=== PATIENT | female | born 1960 | race Caucasian/White ===

== ENCOUNTER 2016-09-06 10:12 | Day surgery (SDC) | payer MEDICAID ==
[~2016-09-06 10:12] MED LIST: Lactated Ringers 1,000 ML IV SCH
[2016-09-06] MEDS ORDERED: Lactated Ringers 1,000 ML IV SCH (10:45)
[2016-09-06] MEDS ORDERED: fentaNYL 100 MCG/2 ML SDV ONE (11:06)
[2016-09-06] MEDS ORDERED: Midazolam 1 MG/ML 2 ML SDV ONE (11:06)
[2016-09-06] MEDS ORDERED: Propofol 200 MG/20 ML SDV ONE (11:06)
[2016-09-06 13:27] VITALS: BP 102/71
--- NOTE | 2016-09-07 07:42 | OR ---
DATE OF PROCEDURE: 09/06/2016 PREOPERATIVE DIAGNOSIS: Colon cancer screening. POSTOPERATIVE DIAGNOSIS: Small colon polyp 15 cm from the anal verge. PROCEDURE: Colonoscopy to the cecum with biopsy resection of small colon polyp 15 cm from the anal verge. ANESTHESIA: IV anesthesia with monitored anesthesia care. INDICATION: This 56-year-old white female is referred for a colonoscopy for colon cancer screening. She has never had a colonoscopic exam. I counseled her for the procedure including risks and alternatives, and she gave her informed consent to proceed. DESCRIPTION OF PROCEDURE: The patient was placed in the left lateral decubitus position. IV anesthesia was administered by the Anesthesia Service. Time-out was held. A rectal exam was performed, which was unremarkable. The flexible video Olympus colonoscope was introduced through her anus, up her rectum, and out her colon all the way to the cecum. Once the cecum was reached, the scope was slowly withdrawn examining the mucosa throughout. No mucosal abnormalities were noted until we reached 15 cm from the anal verge. Here, a small polyp was seen, which was removed with a single bite of the biopsy forceps. The scope was withdrawn further with no other lesions noted. The scope was retroflexed in the rectum with the distal rectum appearing unremarkable. The scope was straightened and removed. She tolerated the procedure well. Kashif Gonzales MD /[id number]
== END 2016-09-06 13:30 | disposition home or self-care (01) ==
LOC: JP.SDS 10:12
PROVIDERS: ATTEND Surgery
DX: Z12.11 Encounter for screening for malignant neoplasm of colon (principal); K63.5 Polyp of colon; F41.9 Anxiety disorder, unspecified; F32.9 Major depressive disorder, single episode, unspecified; E03.9 Hypothyroidism, unspecified; F17.200 Nicotine dependence, unspecified, uncomplicated
CPT/HCPCS: 45380; 88305; J2250; J2704; J3010; J7120

== ENCOUNTER 2024-01-13 10:14 | Emergency (ER) | payer MEDICAID ==
[2024-01-13] MEDS ORDERED: Naloxone 0.4 MG/ML SDV IVPUSH PRN ×3 (11:11→18:00)
[2024-01-13 11:17] LABS: BASOPHILS ABSOLUTE AUTO 0.04 K/uL (0.00-0.10); BASOPHILS PERCENT AUTO 0.3 % (0.1-1.3); EOSINOPHILS ABSOLUTE AUTO 0.03 K/uL (0.00-0.40); EOSINOPHILS PERCENT AUTO 0.2 % (0.0-5.4); HEMATOCRIT 40.6 % (34.3-46.0); IMMATURE GRAN ABSOLUTE AUTO 0.05 K/uL (0.00-0.23); IMMATURE GRAN PERCENT AUTO 0.4 % (0.0-0.7); LYMPHOCYTES ABSOLUTE AUTO 1.59 K/uL (0.8-3.3); LYMPHOCYTES PERCENT AUTO 11.3 % (11.4-47.7); MEAN CORPUSCULAR HGB CONC 34.5 g/dL (31.6-35.5); MEAN CORPUSCULAR VOLUME 84.2 fL (81.4-99.0); MONOCYTES ABSOLUTE AUTO 0.67 K/uL (0.20-0.90); MONOCYTES PERCENT AUTO 4.8 % (3.3-12.6); NEUTROPHILS ABSOLUTE AUTO 11.66 K/uL (1.0-7.6); PLATELET COUNT,PLT 408 K/uL (130-375); RED BLOOD CELL COUNT 4.82 M/uL (3.77-5.24)
[2024-01-13 11:30] LABS: ALANINE AMINOTRANSFERASE,ALT 24 U/L (12-78); ALBUMIN 4.1 g/dL (3.4-5.0); ALKALINE PHOSPHATASE 78 U/L (46-116); ANION GAP 13.4 mmol/L (5.0-14.0); ASPARTATE AMNIOTRANSFERASE,AST 14 U/L (15-37); BILIRUBIN TOTAL 0.6 mg/dL (0.2-1.0); BLOOD UREA NITROGEN,BUN 12 mg/dL (7-18); CALCIUM 9.3 mg/dL (8.5-10.1); CARBON DIOXIDE,CO2 26 mmol/L (21-32); CHLORIDE,CL 102 mmol/L (100-108); CREATININE 0.8 mg/dL (0.6-1.0); EST CRCL DRUG DOSING (CG) 61.09 mL/min; ESTIMATED GFR 84 mL/min (>60); GLUCOSE RANDOM 125 mg/dL (74-106); POTASSIUM,K 3.7 mmol/L (3.6-5.2); PROTEIN TOTAL,TP 8.1 g/dL (6.4-8.2); SODIUM,NA 141 mmol/L (140-148)
[2024-01-13] MEDS: Alum Hydrox/Mag Hydrox/Simeth 15 ML, Lidocaine 2% 15 ML PO ONE (11:40)
[2024-01-13] MEDS: Ondansetron 4 MG/2 ML SDV IVPUSH ONE (11:41)
[2024-01-13] MEDS: HYDROmorphone 0.5 MG/0.5 ML Syringe IVPUSH ONE ×4 (11:41→18:05)
[2024-01-13] MEDS: Iopamidol 612 MG/ML 100 ML Bottle IV SCH (12:50)
[2024-01-13] MEDS: Sodium Chloride 0.9% 10 ML Syringe FLUSH PRN (12:50)
[2024-01-13] MEDS: Sodium Chloride 0.9% 100 ML IV SCH (12:50)
[2024-01-13] MEDS: ceFAZolin 2 GM in Premix Bag 1 BAG IV ONE (12:51)
[2024-01-13] MEDS: Sodium Chloride 0.9% 1,000 ML IV SCH (12:51)
[2024-01-13 17:11] VITALS: BP 109/57; PULSE 70
== END 2024-01-13 18:04 ==
LOC: JP.ED 10:14
DX: K85.90 Acute pancreatitis without necrosis or infection, unspecified (principal); R91.1 Solitary pulmonary nodule; K83.9 Disease of biliary tract, unspecified; K86.9 Disease of pancreas, unspecified; N83.8 Other noninflammatory disorders of ovary, fallopian tube and broad ligament; R74.8 Abnormal levels of other serum enzymes; D72.829 Elevated white blood cell count, unspecified; F17.210 Nicotine dependence, cigarettes, uncomplicated; Z79.84 Long term (current) use of oral hypoglycemic drugs; Z79.890 Hormone replacement therapy; Z79.899 Other long term (current) drug therapy
CPT/HCPCS: 36415; 74177; 80053; 83605; 83690; 85025; 86140; 96361; 96365; 96375; 96376; 99285; A9270; J0690; J1170; J2405; J3490; J7030; Q9967

== ENCOUNTER 2024-01-29 13:03 | Emergency (ER) | payer MEDICAID ==
[2024-01-29] MEDS ORDERED: Sodium Chloride 0.9% 10 ML Syringe FLUSH PRN (14:19)
[2024-01-29 14:24] LABS: BASOPHILS ABSOLUTE AUTO 0.11 K/uL (0.00-0.10); EOSINOPHILS ABSOLUTE AUTO 0.43 K/uL (0.00-0.40); HEMATOCRIT 37.1 % (34.3-46.0); HEMOGLOBIN 11.9 g/dL (11.2-15.5); IMMATURE GRAN ABSOLUTE AUTO 0.09 K/uL (0.00-0.23); IMMATURE GRAN PERCENT AUTO 0.8 % (0.0-0.7); LYMPHOCYTES ABSOLUTE AUTO 1.69 K/uL (0.8-3.3); LYMPHOCYTES PERCENT AUTO 15.6 % (11.4-47.7); MEAN CORPUSCULAR HEMOGLOBIN 28.4 pg (31.6-35.5); MEAN CORPUSCULAR HGB CONC 32.1 g/dL (31.6-35.5); MEAN CORPUSCULAR VOLUME 88.5 fL (81.4-99.0); MONOCYTES ABSOLUTE AUTO 0.38 K/uL (0.20-0.90); MONOCYTES PERCENT AUTO 3.5 % (3.3-12.6); NEUTROPHILS ABSOLUTE AUTO 8.13 K/uL (1.0-7.6); NEUTROPHILS PERCENT AUTO 75.1 % (40.0-78.1); PLATELET COUNT,PLT 912 K/uL (130-375); RED BLOOD CELL COUNT 4.19 M/uL (3.77-5.24); WHITE BLOOD CELL COUNT,WBC 10.8 K/uL (3.2-11.0)
[2024-01-29 14:34] LABS: A/G RATIO 0.6 (1.2-2.2); ALANINE AMINOTRANSFERASE,ALT 199 U/L (12-78); ALBUMIN 3.1 g/dL (3.4-5.0); BILIRUBIN TOTAL 1.6 mg/dL (0.2-1.0); BLOOD UREA NITROGEN,BUN 7 mg/dL (7-18); C-REACTIVE PROTEIN 4.19 mg/dL (<0.50); CALCIUM 9.5 mg/dL (8.5-10.1); CARBON DIOXIDE,CO2 31 mmol/L (21-32); CHLORIDE,CL 99 mmol/L (100-108); CREATININE 0.8 mg/dL (0.6-1.0); EST CRCL DRUG DOSING (CG) 61.09 mL/min; ESTIMATED GFR 84 mL/min (>60); GLUCOSE RANDOM 107 mg/dL (74-106); POTASSIUM,K 3.7 mmol/L (3.6-5.2); PROTEIN TOTAL,TP 8.5 g/dL (6.4-8.2); SODIUM,NA 139 mmol/L (140-148)
[2024-01-29 14:49] LABS: ASPARTATE AMNIOTRANSFERASE,AST 217 U/L (15-37)
[2024-01-29 15:02] LABS: ALKALINE PHOSPHATASE 1197 U/L (46-116); ANION GAP 12.7 mmol/L (5.0-14.0)
[2024-01-29] MEDS ORDERED: Naloxone 0.4 MG/ML SDV IVPUSH PRN (18:26)
[2024-01-29] MEDS: HYDROmorphone 0.5 MG/0.5 ML Syringe IVPUSH ONE (18:53)
[2024-01-29] MEDS: Ondansetron 4 MG/2 ML SDV IVPUSH ONE (19:03)
[2024-01-29] MEDS: HYDROmorphone 0.5 MG/0.5 ML Syringe IVPUSH PRN (23:12)
[2024-01-29] MEDS ORDERED: HYDROmorphone 0.5 MG/0.5 ML Syringe IVPUSH SCH (23:45)
[2024-01-30 01:10] VITALS: BP 98/56; PULSE 62
== END 2024-01-30 01:20 ==
LOC: JP.ED 13:03
DX: K85.90 Acute pancreatitis without necrosis or infection, unspecified (principal); F17.210 Nicotine dependence, cigarettes, uncomplicated; Z79.899 Other long term (current) drug therapy; R19.00 Intra-abdominal and pelvic swelling, mass and lump, unspecified site; R74.8 Abnormal levels of other serum enzymes; R10.11 Right upper quadrant pain
CPT/HCPCS: 36415; 76705; 76830; 76857; 80053; 83690; 85025; 86140; 93976; 96374; 96375; 96376; 99285; J1171; J2405

== ENCOUNTER 2024-04-11 09:43 | Emergency (ER) | payer MEDICAID ==
[2024-04-11 10:56] LABS: BASOPHILS ABSOLUTE AUTO 0.06 K/uL (0.00-0.10); BASOPHILS PERCENT AUTO 0.7 % (0.1-1.3); EOSINOPHILS ABSOLUTE AUTO 0.27 K/uL (0.00-0.40); EOSINOPHILS PERCENT AUTO 3.2 % (0.0-5.4); HEMATOCRIT 33.4 % (34.3-46.0); HEMOGLOBIN 10.7 g/dL (11.2-15.5); IMMATURE GRAN ABSOLUTE AUTO 0.03 K/uL (0.00-0.23); IMMATURE GRAN PERCENT AUTO 0.4 % (0.0-0.7); LYMPHOCYTES ABSOLUTE AUTO 1.01 K/uL (0.8-3.3); LYMPHOCYTES PERCENT AUTO 11.9 % (11.4-47.7); MEAN CORPUSCULAR HEMOGLOBIN 27.2 pg (31.6-35.5); MEAN CORPUSCULAR VOLUME 84.8 fL (81.4-99.0); MONOCYTES ABSOLUTE AUTO 0.43 K/uL (0.20-0.90); MONOCYTES PERCENT AUTO 5.1 % (3.3-12.6); NEUTROPHILS ABSOLUTE AUTO 6.71 K/uL (1.0-7.6); NEUTROPHILS PERCENT AUTO 78.7 % (40.0-78.1); PLATELET COUNT,PLT 318 K/uL (130-375); RED BLOOD CELL COUNT 3.94 M/uL (3.77-5.24); WHITE BLOOD CELL COUNT,WBC 8.5 K/uL (3.2-11.0)
[2024-04-11 11:17] LABS: A/G RATIO 0.6 (1.2-2.2); ALANINE AMINOTRANSFERASE,ALT 50 U/L (12-78); ALBUMIN 3.1 g/dL (3.4-5.0); ALKALINE PHOSPHATASE 316 U/L (46-116); ANION GAP 7.1 mmol/L (5.0-14.0); ASPARTATE AMNIOTRANSFERASE,AST 35 U/L (15-37); BILIRUBIN TOTAL 0.4 mg/dL (0.2-1.0); BLOOD UREA NITROGEN,BUN 16 mg/dL (7-18); CALCIUM 9.1 mg/dL (8.5-10.1); CARBON DIOXIDE,CO2 32 mmol/L (21-32); CHLORIDE,CL 101 mmol/L (100-108); CREATININE 0.9 mg/dL (0.6-1.0); EST CRCL DRUG DOSING (CG) 53.61 mL/min; ESTIMATED GFR 72 mL/min (>60); GLUCOSE RANDOM 169 mg/dL (74-106); POTASSIUM,K 3.8 mmol/L (3.6-5.2); PROTEIN TOTAL,TP 8.2 g/dL (6.4-8.2); SODIUM,NA 140 mmol/L (140-148)
[2024-04-11] MEDS: Ondansetron 4 MG/2 ML SDV IVPUSH ONE (11:39)
[2024-04-11] MEDS: fentaNYL 100 MCG/2 ML SDV IVPUSH ONE (11:40)
[2024-04-11 11:41] VITALS: BP 135/88; PULSE 91
== END 2024-04-11 13:41 | disposition home or self-care (01) ==
LOC: JP.ED 09:43
DX: C17.0 Malignant neoplasm of duodenum (principal); Z90.49 Acquired absence of other specified parts of digestive tract; Z87.891 Personal history of nicotine dependence; Z79.890 Hormone replacement therapy; Z79.899 Other long term (current) drug therapy
CPT/HCPCS: 36415; 80053; 83605; 85025; 96374; 96375; 99284; J2405; J3010

== ENCOUNTER 2024-04-13 08:33 | Emergency (ER) | payer MEDICAID ==
[2024-04-13 10:03] LABS: BASOPHILS ABSOLUTE AUTO 0.05 K/uL (0.00-0.10); BASOPHILS PERCENT AUTO 0.6 % (0.1-1.3); EOSINOPHILS ABSOLUTE AUTO 0.29 K/uL (0.00-0.40); EOSINOPHILS PERCENT AUTO 3.4 % (0.0-5.4); HEMATOCRIT 32.9 % (34.3-46.0); HEMOGLOBIN 10.6 g/dL (11.2-15.5); IMMATURE GRAN PERCENT AUTO 0.2 % (0.0-0.7); LYMPHOCYTES ABSOLUTE AUTO 0.61 K/uL (0.8-3.3); LYMPHOCYTES PERCENT AUTO 7.2 % (11.4-47.7); MEAN CORPUSCULAR HEMOGLOBIN 27.2 pg (31.6-35.5); MEAN CORPUSCULAR HGB CONC 32.2 g/dL (31.6-35.5); MEAN CORPUSCULAR VOLUME 84.4 fL (81.4-99.0); MONOCYTES ABSOLUTE AUTO 0.45 K/uL (0.20-0.90); MONOCYTES PERCENT AUTO 5.3 % (3.3-12.6); NEUTROPHILS ABSOLUTE AUTO 7.01 K/uL (1.0-7.6); NEUTROPHILS PERCENT AUTO 83.3 % (40.0-78.1); PLATELET COUNT,PLT 301 K/uL (130-375); WHITE BLOOD CELL COUNT,WBC 8.4 K/uL (3.2-11.0)
[2024-04-13 10:06] LABS: IMMATURE GRAN ABSOLUTE AUTO 0.02 K/uL (0.00-0.23)
[2024-04-13] MEDS: cefTRIAXone 2 GM in Sodium Chloride 0.9% 50 ML IV ONE (10:07)
[2024-04-13] MEDS: Ondansetron 4 MG/2 ML SDV IVPUSH ONE (10:07)
[2024-04-13] MEDS: Ketorolac 30 MG/ML SDV IVPUSH ONE ×2 (10:07→16:27)
[2024-04-13] MEDS: Sodium Chloride 0.9% 1,000 ML IV ONE (10:07)
[2024-04-13 10:24] LABS: A/G RATIO 0.7 (1.2-2.2); ALANINE AMINOTRANSFERASE,ALT 60 U/L (12-78); ALBUMIN 3.3 g/dL (3.4-5.0); ALKALINE PHOSPHATASE 310 U/L (46-116); ASPARTATE AMNIOTRANSFERASE,AST 32 U/L (15-37); BILIRUBIN TOTAL 0.6 mg/dL (0.2-1.0); BLOOD UREA NITROGEN,BUN 17 mg/dL (7-18); CALCIUM 9.4 mg/dL (8.5-10.1); CARBON DIOXIDE,CO2 34 mmol/L (21-32); CHLORIDE,CL 98 mmol/L (100-108); CREATININE 0.9 mg/dL (0.6-1.0); EST CRCL DRUG DOSING (CG) 53.61 mL/min; ESTIMATED GFR 72 mL/min (>60); GLUCOSE RANDOM 162 mg/dL (74-106); POTASSIUM,K 3.6 mmol/L (3.6-5.2); PROTEIN TOTAL,TP 8.3 g/dL (6.4-8.2); SODIUM,NA 139 mmol/L (140-148)
[2024-04-13 10:51] LABS: ANION GAP 10.6 mmol/L (5.0-14.0)
[2024-04-13] MEDS: Iopamidol 612 MG/ML 100 ML Bottle IV SCH (11:43)
[2024-04-13] MEDS: Sodium Chloride 0.9% 10 ML Syringe FLUSH ONE (11:44)
[2024-04-13] MEDS: Sodium Chloride 0.9% 80 ML IV SCH (11:44)
[2024-04-13] MEDS: Iopamidol 612 MG/ML 50 ML SDV PO ONE (11:44)
[2024-04-13] MEDS: D5 1/2 NS w/ 20 mEq/L KCl 1,000 ML IV SCH (16:26)
[2024-04-13] MEDS: Acetaminophen 500 MG Tab PO ONE (22:13)
[2024-04-14] MEDS: Lactated Ringers 1,000 ML IV SCH (00:56)
[2024-04-14] MEDS: Ketorolac 30 MG/ML SDV IVPUSH ONE (01:07)
[2024-04-14] MEDS ORDERED: Levothyroxine 100 MCG Tab PO SCH (07:30)
[2024-04-14] MEDS: Sodium Chloride 0.9% 1,000 ML IV SCH (08:54)
[2024-04-14] MEDS: HYDROmorphone 0.5 MG/0.5 ML Syringe IVPUSH ONE (08:55)
[2024-04-14] MEDS: cefTRIAXone 2 GM in Sodium Chloride 0.9% 50 ML IV ONE (08:56)
[2024-04-14] MEDS: PARoxetine 20 MG Tab PO ONE (08:57)
[2024-04-14] MEDS: HYDROmorphone 0.5 MG/0.5 ML Syringe IVPUSH PRN (11:10)
[2024-04-14] MEDS: Lidocaine 4% Top Soln 50 ML Bottle MUCMEM ONE (18:46)
[2024-04-14] MEDS: Acetaminophen 325 MG Tab PO ONE (22:37)
[2024-04-15 00:26] VITALS: BP 106/63; PULSE 95
== END 2024-04-15 00:55 | disposition other institution (70) ==
LOC: JP.ED 08:33
DX: K75.0 Abscess of liver (principal); E03.9 Hypothyroidism, unspecified; Z86.16 Personal history of COVID-19; Z90.49 Acquired absence of other specified parts of digestive tract; Z87.891 Personal history of nicotine dependence; Z79.890 Hormone replacement therapy; Z79.899 Other long term (current) drug therapy
CPT/HCPCS: 36415; 43752; 51702; 74018; 74177; 80053; 83690; 85025; 96361; 96365; 96366; 96367; 96375; 96376; 99285; A9270; J0696; J1171; J1885; J2405; J3480; J3490; J7030; J7120; Q9967

== ENCOUNTER 2024-10-06 16:27 | Emergency (ER) | payer MEDICAID ==
[2024-10-06 17:45] LABS: BASOPHILS PERCENT AUTO 0.3 % (0.1-1.3); EOSINOPHILS ABSOLUTE AUTO 0.52 K/uL (0.00-0.40); EOSINOPHILS PERCENT AUTO 14.7 % (0.0-5.4); HEMATOCRIT 39.6 % (34.3-46.0); HEMOGLOBIN 12.5 g/dL (11.2-15.5); IMMATURE GRAN ABSOLUTE AUTO 0.03 K/uL (0.00-0.23); IMMATURE GRAN PERCENT AUTO 0.8 % (0.0-0.7); LYMPHOCYTES ABSOLUTE AUTO 1.42 K/uL (0.8-3.3); LYMPHOCYTES PERCENT AUTO 40.1 % (11.4-47.7); MEAN CORPUSCULAR HEMOGLOBIN 27.6 pg (31.6-35.5); MEAN CORPUSCULAR HGB CONC 31.6 g/dL (31.6-35.5); MEAN CORPUSCULAR VOLUME 87.4 fL (81.4-99.0); MONOCYTES PERCENT AUTO 2.8 % (3.3-12.6); NEUTROPHILS ABSOLUTE AUTO 1.46 K/uL (1.0-7.6); NEUTROPHILS PERCENT AUTO 41.3 % (40.0-78.1); PLATELET COUNT,PLT 463 K/uL (130-375); RED BLOOD CELL COUNT 4.53 M/uL (3.77-5.24); WHITE BLOOD CELL COUNT,WBC 3.5 K/uL (3.2-11.0)
[2024-10-06] MEDS: Sodium Chloride 0.9% 1,000 ML IV SCH (17:55)
[2024-10-06] MEDS: Ondansetron 4 MG/2 ML SDV IVPUSH ONE (17:56)
[2024-10-06] MEDS: HYDROmorphone 0.5 MG/0.5 ML Syringe IVPUSH ONE (17:56)
[2024-10-06 18:11] LABS: A/G RATIO 0.7 (1.2-2.2); ALANINE AMINOTRANSFERASE,ALT 78 U/L (12-78); ALBUMIN 3.2 g/dL (3.4-5.0); ALKALINE PHOSPHATASE 265 U/L (46-116); AMYLASE 34 U/L (25-115); ASPARTATE AMNIOTRANSFERASE,AST 39 U/L (15-37); BILIRUBIN TOTAL 0.8 mg/dL (0.2-1.0); BLOOD UREA NITROGEN,BUN 18 mg/dL (7-18); CALCIUM 9.5 mg/dL (8.5-10.1); CARBON DIOXIDE,CO2 30 mmol/L (21-32); CHLORIDE,CL 99 mmol/L (100-108); CREATININE 0.8 mg/dL (0.6-1.0); EST CRCL DRUG DOSING (CG) 60.31 mL/min; ESTIMATED GFR 83 mL/min (>60); GLUCOSE RANDOM 137 mg/dL (74-106); POTASSIUM,K 3.7 mmol/L (3.6-5.2); PROTEIN TOTAL,TP 7.6 g/dL (6.4-8.2); SODIUM,NA 136 mmol/L (140-148)
[2024-10-06 18:18] LABS: BASOPHILS ABSOLUTE AUTO 0.01 K/uL (0.00-0.10)
[2024-10-06 18:22] LABS: ANION GAP 10.7 mmol/L (5.0-14.0)
[2024-10-06 19:25] LABS: APPEARANCE,URINE SLIGHTLY CLOUDY (CLEAR); BILIRUBIN,URINE NEGATIVE (NEGATIVE); COLOR,URINE ORANGE (YELLOW); GLUCOSE,URINE NEGATIVE (NEGATIVE); KETONES,URINE NEGATIVE (NEGATIVE); LEUKOCYTE ESTERASE,URINE NEGATIVE (NEGATIVE); NITRITE,URINE NEGATIVE (NEGATIVE); OCCULT BLOOD,URINE NEGATIVE (NEGATIVE); PROTEIN,URINE TRACE mg/dL (NEGATIVE); UROBILINOGEN,URINE 0.2 EU/dL (0.2-1.0)
[2024-10-06] MEDS: Sodium Chloride 0.9% 100 ML IV SCH (19:28)
[2024-10-06] MEDS: Iopamidol 612 MG/ML 100 ML Bottle IV PRN (19:28)
[2024-10-06] MEDS: Sodium Chloride 0.9% 10 ML Syringe FLUSH ONE (19:28)
[2024-10-06 19:58] LABS: AMORPHOUS SEDIMENT,URINE NOT SEEN; BACTERIA,URINE FEW; EPITHELIAL CELLS,URINE MODERATE; MUCUS,URINE FEW; RBC,URINE NOT SEEN (0-5); WBC,URINE 0-5 (0-5)
[2024-10-06 21:22] VITALS: BP 125/81; PULSE 76
== END 2024-10-06 21:29 | disposition home or self-care (01) ==
LOC: JP.ED 16:27
DX: R10.10 Upper abdominal pain, unspecified (principal); E86.0 Dehydration; Z90.49 Acquired absence of other specified parts of digestive tract; Z79.01 Long term (current) use of anticoagulants; Z79.890 Hormone replacement therapy; Z79.899 Other long term (current) drug therapy
CPT/HCPCS: 36415; 74177; 80053; 81001; 82150; 83690; 85025; 96361; 96374; 96375; 99284; J2405; J7030; Q9967; J1171

== ENCOUNTER 2024-10-27 12:24 | Emergency (ER) | payer MEDICAID ==
[2024-10-27 12:57] VITALS: BP 143/90; PULSE 108
[2024-10-27 13:17] LABS: BASOPHILS ABSOLUTE AUTO 0.07 K/uL (0.00-0.10); BASOPHILS PERCENT AUTO 0.2 % (0.1-1.3); EOSINOPHILS ABSOLUTE AUTO 0.11 K/uL (0.00-0.40); EOSINOPHILS PERCENT AUTO 0.4 % (0.0-5.4); IMMATURE GRAN ABSOLUTE AUTO 0.26 K/uL (0.00-0.23); IMMATURE GRAN PERCENT AUTO 0.9 % (0.0-0.7); LYMPHOCYTES ABSOLUTE AUTO 1.29 K/uL (0.8-3.3); LYMPHOCYTES PERCENT AUTO 4.3 % (11.4-47.7); MONOCYTES ABSOLUTE AUTO 0.81 K/uL (0.20-0.90); MONOCYTES PERCENT AUTO 2.7 % (3.3-12.6); NEUTROPHILS ABSOLUTE AUTO 27.76 K/uL (1.0-7.6); NEUTROPHILS PERCENT AUTO 91.5 % (40.0-78.1); PLATELET COUNT,PLT 513 K/uL (130-375); RED BLOOD CELL COUNT 4.53 M/uL (3.77-5.24)
[2024-10-27 13:29] LABS: WHITE BLOOD CELL COUNT,WBC 30.3 K/uL (3.2-11.0)
[2024-10-27 13:38] LABS: A/G RATIO 0.6 (1.2-2.2); ALANINE AMINOTRANSFERASE,ALT 44 U/L (12-78); ASPARTATE AMNIOTRANSFERASE,AST 35 U/L (15-37); BILIRUBIN TOTAL 0.4 mg/dL (0.2-1.0); BLOOD UREA NITROGEN,BUN 16 mg/dL (7-18); CARBON DIOXIDE,CO2 23 mmol/L (21-32); CHLORIDE,CL 96 mmol/L (100-108); CREATININE 0.8 mg/dL (0.6-1.0); EST CRCL DRUG DOSING (CG) 59.62 mL/min; ESTIMATED GFR 83 mL/min (>60); GLUCOSE RANDOM 138 mg/dL (74-106); POTASSIUM,K 4.4 mmol/L (3.6-5.2); PROTEIN TOTAL,TP 6.9 g/dL (6.4-8.2); SODIUM,NA 131 mmol/L (140-148)
== END 2024-10-27 16:15 | disposition home or self-care (01) ==
LOC: JP.ED 12:24
DX: C17.0 Malignant neoplasm of duodenum (principal); D72.829 Elevated white blood cell count, unspecified; F17.200 Nicotine dependence, unspecified, uncomplicated; Z90.49 Acquired absence of other specified parts of digestive tract; Z79.01 Long term (current) use of anticoagulants; Z79.890 Hormone replacement therapy; Z79.899 Other long term (current) drug therapy
CPT/HCPCS: 36415; 80053; 83690; 85025; 96361; 96374; 99284; A9270; J7030; J1171

== ENCOUNTER 2024-11-03 18:20 | Emergency (ER) | payer MEDICAID ==
[2024-11-03] MEDS ORDERED: Naloxone 0.4 MG/ML SDV IVPUSH PRN (20:31)
[2024-11-03 21:40] VITALS: BP 139/94; PULSE 101
== END 2024-11-03 21:41 | disposition home or self-care (01) ==
LOC: JP.ED 18:20
DX: R10.9 Unspecified abdominal pain (principal); C79.9 Secondary malignant neoplasm of unspecified site; F17.200 Nicotine dependence, unspecified, uncomplicated; Z90.49 Acquired absence of other specified parts of digestive tract; Z79.01 Long term (current) use of anticoagulants; Z79.890 Hormone replacement therapy; Z79.899 Other long term (current) drug therapy
CPT/HCPCS: 96372; 99283; J1171